=== PATIENT | male | born 1935 | race Caucasian/White ===

== ENCOUNTER → 2017-04-18 | Outpatient (CLI) | payer MEDICARE, BC ==
[~2017-04-18] MED LIST: ASPI-496 PO; ATOR40TA78 PO; BISA5TAB38 PO; FERR220S6 PO; ISOS30TA8 PO; OMEP40CA6 PO; SENN1TAB67 PO
== END | disposition home or self-care (01) ==
LOC: STAR 13:33
PROVIDERS: ATTEND Internal Medicine Geriatric Medicine
DX: Z01.818 Encounter for other preprocedural examination (principal); K22.5 Diverticulum of esophagus, acquired
CPT/HCPCS: 93005

== ENCOUNTER 2017-04-24 10:05 | Day surgery (SDC) | payer MEDICARE, BC ==
[~2017-04-24] VITALS: Ht 185.4 cm; Wt 78.8 kg
[2017-04-24] MEDS ORDERED: ROCURONIUM 10MG/ML,5ML ONE (10:17)
[2017-04-24] MEDS ORDERED: EPINEPHRINE 1 MG/ML, 1ML ONE (10:17)
[2017-04-24] MEDS ORDERED: PROPOFOL 10 MG/ML, 20ML ONE (10:17)
[2017-04-24] MEDS ORDERED: SUCCINYLCHOLINE 20 MG/ML, 10ML ONE (10:17)
[2017-04-24] MEDS ORDERED: PHENYLEPHRINE 10 MG/ML ONE (10:17)
[2017-04-24] MEDS ORDERED: ONDANSETRON 2MG/ML, 2ML ONE (10:17)
[2017-04-24] MEDS ORDERED: DEXAMETHASONE 4 MG/ML, 1ML ONE (10:17)
[2017-04-24] MEDS ORDERED: LACTATED RINGERS 1,000 ML IV SCH (10:28)
[2017-04-24] MEDS ORDERED: EPINEPHRINE SYRINGE 0.1 MG/ML, 10ML ONE (10:41)
[2017-04-24] MEDS ORDERED: INDOCYANINE GREEN 25 MG VIAL ONE (10:41)
[2017-04-24 11:03] VITALS: BP 129/76
[2017-04-24] MEDS ORDERED: HYDROmorphone 1 MG/ML, 1ML IV PRN (13:30)
[2017-04-24] MEDS ORDERED: METOPROLOL 1 MG/ML, 5ML IV PRN (13:30)
[2017-04-24] MEDS ORDERED: METOCLOPRAMIDE 5 MG/ML, 2ML IV PRN (13:30)
[2017-04-24] MEDS ORDERED: ONDANSETRON 2MG/ML, 2ML IVPush PRN (13:30)
[2017-04-24] MEDS ORDERED: HYDROcodone/APAP 7.5-325MG/15ML UDC PO PRN (13:30)
[2017-04-24] MEDS ORDERED: ALBUTEROL SULFATE 2.5 MG/3 ML NPPB PRN (13:30)
[2017-04-24] MEDS ORDERED: OXYcodone 5 MG/5 ML ORAL.SOL UDC PO PRN (13:30)
[2017-04-24] MEDS ORDERED: FENTANYL PF 100 MCG/2ML IV PRN (13:30)
[2017-04-24] MEDS ORDERED: hydrALAzine 20 MG/ML, 1ML IV PRN (13:30)
[2017-04-24] MEDS ORDERED: LABETALOL 5MG/ML, 20ML IV PRN (13:30)
[2017-04-24] MEDS ORDERED: EPHEDRINE 50 MG/ML, 1ML IVPush PRN (13:30)
[2017-04-24] MEDS ORDERED: ACETAMINOPHEN 325 MG TABLET PO PRN (13:30)
== END 2017-04-24 15:40 | disposition home or self-care (01) ==
LOC: OUT 10:05
PROVIDERS: ATTEND Internal Medicine Geriatric Medicine
DX: K22.5 Diverticulum of esophagus, acquired (principal); I10 Essential (primary) hypertension; I25.10 Atherosclerotic heart disease of native coronary artery without angina pectoris
CPT/HCPCS: 43130; J0171; J0330; J1100; J2370; J2405; J2704; J3010; J7120

== ENCOUNTER 2017-09-18 11:27 | Day surgery (SDC) | payer MEDICARE, BC ==
[~2017-09-18] VITALS: Ht 188 cm; Wt 79.5 kg
[2017-09-18] MEDS ORDERED: LACTATED RINGERS 1,000 ML IV SCH (11:57)
[2017-09-18] MEDS ORDERED: PROPOFOL 10 MG/ML, 20ML ONE ×2 (12:21→12:26)
[2017-09-18] MEDS ORDERED: LIDOCAINE-MPF 2% ,5ML ONE (12:22)
[2017-09-18] MEDS ORDERED: ROCURONIUM 10 MG/ML,10ML ONE (12:22)
[2017-09-18] MEDS ORDERED: PHENYLEPHRINE 10 MG/ML ONE ×3 (12:26→13:52)
[2017-09-18] MEDS ORDERED: ROCURONIUM 10MG/ML,5ML ONE (12:26)
[2017-09-18] MEDS ORDERED: LIDOCAINE/MPF 2%-EPI 1:200K, 20 ML ONE (12:26)
[2017-09-18] MEDS ORDERED: DEXAMETHASONE 4 MG/ML, 1ML ONE ×3 (12:26→13:28)
[2017-09-18] MEDS ORDERED: FENTANYL PF 100 MCG/2ML IV PRN (14:30)
[2017-09-18] MEDS ORDERED: OXYcodone 5 MG/5 ML ORAL.SOL UDC PO PRN (14:30)
[2017-09-18] MEDS ORDERED: morphine SULFATE 10 MG/ML, 1ML IV PRN (14:30)
[2017-09-18] MEDS ORDERED: HYDROcodone/APAP 7.5-325MG/15ML UDC PO PRN (14:30)
[2017-09-18] MEDS ORDERED: ONDANSETRON 2MG/ML, 2ML IVPush PRN (14:30)
[2017-09-18] MEDS ORDERED: MEPERIDINE/PF 25MG/0.5ML IVPush PRN (14:30)
[2017-09-18] MEDS ORDERED: OXYcodone 5 MG/5 ML ORAL.SOL UDC ONE (15:04)
== END 2017-09-18 16:25 ==
LOC: OUT 11:27
PROVIDERS: ATTEND Internal Medicine Geriatric Medicine
DX: K22.5 Diverticulum of esophagus, acquired (principal); K21.9 Gastro-esophageal reflux disease without esophagitis; D64.9 Anemia, unspecified; E78.5 Hyperlipidemia, unspecified; Z95.0 Presence of cardiac pacemaker; Z98.890 Other specified postprocedural states
CPT/HCPCS: 43752; J1100; J2370; J2704; J3490; J7120

== ENCOUNTER → 2019-01-09 | Outpatient (CLI) | payer MEDICARE, BC ==
[2019-01-09 15:11] LABS: BASOPHILS # (AUTO) 0.04 x10^3/uL (0-0.1); BASOPHILS % (AUTO) 1 % (0-1); EOSINOPHILS # (AUTO) 0.12 x10^3/uL (0-0.4); EOSINOPHILS % (AUTO) 2 % (1-7); LYMPHOCYTES # (AUTO) 1.68 x10^3/uL (1-3.4); LYMPHOCYTES % (AUTO) 28 % (22-44); MD NO; MEAN CORPUSCULAR HEMOGLOBIN 32.4 pg (27.5-34.5); MEAN CORPUSCULAR HGB CONC 32.9 g/dL (33.2-36.2); MEAN CORPUSCULAR VOLUME 98.6 fL (81-97); MEAN PLATELET VOLUME 8.8 fL (7.4-10.4); MONOCYTES # (AUTO) 0.63 x10^3/uL (0.2-0.8); MONOCYTES % (AUTO) 11 % (2-9); NEUTROPHILS # (AUTO) 3.52 x10^3/uL (1.8-6.8); NEUTROPHILS % (AUTO) 59 % (42-75); PLATELET COUNT 204 x10^3/uL (130-400); RED BLOOD COUNT 4.49 x10^6/uL (4.38-5.82); RED CELL DISTRIBUTION WIDTH 15.3 % (9.4-14.8)
== END | disposition home or self-care (01) ==
LOC: STAR 14:06
PROVIDERS: ATTEND Internal Medicine Geriatric Medicine
DX: K22.5 Diverticulum of esophagus, acquired (principal)
CPT/HCPCS: 36415; 85025; 93005